=== PATIENT | female | born 1980 | race Caucasian/White ===

== ENCOUNTER → 2020-08-07 16:35 | Outpatient (CLI) | payer OTHER, SELFPAY ==
--- NOTE | ~2020-08-07 | XR_ITS ---
EXAMINATION: XR hand RT 2V EXAM DATE: 08/07/2020 17:10 INDICATION: Multiple joint pain. TECHNIQUE: Frontal and lateral projections of the right hand.. Correlation is made to contralateral hand same date. FINDINGS: Joint spaces are maintained. There are no bony erosions identified. There are no acute rig ht hand fractures or dislocations identified. There is no subcutaneous gas. The soft tissue is unre markable. There are no radiopaque foreign bodies. IMPRESSION: 1. Unremarkable XR hand RT 2V exam. Reviewed, dictated and finalized at location A.
--- NOTE | ~2020-08-07 | XR_ITS ---
EXAMINATION: XR foot RT 2V EXAM DATE: 08/07/2020 17:10 INDICATION: Multiple joint pain. TECHNIQUE: Frontal and lateral projections of the right foot. There is no prior study for compariso n. FINDINGS: The joint spaces are uniform. There are no bony erosions identified. There are no acute ri ght foot fractures or dislocations identified. There is no subcutaneous gas. The soft tissue is unr emarkable. There are no radiopaque foreign bodies. IMPRESSION: 1. Unremarkable XR foot RT 2V exam. Reviewed, dictated and finalized at location A.
--- NOTE | ~2020-08-07 | XR_ITS ---
EXAMINATION: XR foot LT 2V EXAM DATE: 08/07/2020 17:10 INDICATION: Multiple joint pain . TECHNIQUE: Frontal and lateral projections of the left foot. There is no prior study for comparison . FINDINGS: The joint spaces are uniform. There are no bony erosions identified. There are no acute l eft foot fractures or dislocations identified. There is no subcutaneous gas. The soft tissue is unr emarkable. There are no radiopaque foreign bodies. IMPRESSION: 1. Unremarkable XR foot LT 2V exam. Reviewed, dictated and finalized at location A.
--- NOTE | ~2020-08-07 | XR_ITS ---
EXAMINATION: XR hand LT 2V EXAM DATE: 08/07/2020 17:10 INDICATION: Multiple joint pain . TECHNIQUE: Frontal and lateral projections of the left hand. There is no prior study for comparison . FINDINGS: The joint spaces are uniform. There are no bony erosions identified. There are no acute fr actures or dislocations identified. There is no subcutaneous gas. The soft tissue is unremarkable. There are no radiopaque foreign bodies. IMPRESSION: 1. Unremarkable XR hand LT 2V exam. Reviewed, dictated and finalized at location A.
== END ==
PROVIDERS: Visit Provider Internal Medicine Rheumatology
DX: M25.50 Pain in unspecified joint (principal)
CPT/HCPCS: 73120; 73620

== ENCOUNTER → 2022-08-22 08:39 | Outpatient (CLI) | payer OTHER, SELFPAY ==
--- NOTE | ~2022-08-22 | MM_ITS ---
EXAMINATION: MM screening mary BI w dimas HISTORY: Screening mammogram TECHNIQUE: Craniocaudal and mediolateral oblique 3-D tomosynthesis images were obtained and synthetic 2-D images were generated. CAD analysis was submitted and interpreted. COMPARISON: No prior mammogram is available for comparison at this institution. BREAST PARENCHYMAL COMPOSITION:The breasts are heterogeneously dense, which may obscure small masses. FINDINGS: Possible area of distortion at the upper right breast on MLO view. No mass lesion or suspic ious calcification seen in either breast. No significant distortion seen in the left breast. IMPRESSION: Possible area of distortion in the upper right breast on MLO view. Spot compression and true lateral views, and possibly ultrasound, recommended for further evaluation. BI-RADS Category 0: Incomplete: Needs additional imaging evaluation. Reviewed, dictated and finalized at [facility]. IMPRESSION: Possible area of distortion in the upper right breast on MLO view. Spot compre ssion and true lateral views, and possibly ultrasound, recommended for further evaluation. BI-RADS Category 0: Incomplete: Needs additional imaging evaluation.
== END ==
PROVIDERS: PCP Nurse Practitioner; Visit Provider Nurse Practitioner
DX: Z12.31 Encounter for screening mammogram for malignant neoplasm of breast (principal); R92.8 Other abnormal and inconclusive findings on diagnostic imaging of breast
CPT/HCPCS: 77063; 77067

== ENCOUNTER → 2022-09-15 08:10 | Outpatient (CLI) | payer OTHER, SELFPAY ==
--- NOTE | ~2022-09-15 | MMUS_ITS ---
EXAMINATION: MM diagnostic mary RT w dimas, US breast RT complete HISTORY: Possible architectural distortion in upper right breast on screening MLO view of 08/22/2022 w as reported TECHNIQUE: Additional 3-D tomosynthesis images of the right breast were performed and synthetic 2-D i mages were generated. CAD analysis was submitted and interpreted. High resolution complete right johana st ultrasound examination including all 4 quadrants and subareolar area was performed. COMPARISON: 08/22/2022 bilateral screening mammogram FINDINGS: MAMMOGRAPHIC FINDINGS: No suspicious mass or architectural distortion is detected. No malignant calcification, skin thickeni ng or retraction. ULTRASOUND: No suspicious mass or shadowing, cyst or other sylvian sonographic abnormality is detected. IMPRESSION: 1. No mammographic or sonographic evidence of malignancy 2. Routine annual mammographic screening is recommended BI-RADS Category 1: Negative Reviewed, dictated and finalized at location A. IMPRESSION: 1. No mammographic or sonographic evidence of malignancy 2. Routine annual mammographic screening is recommended BI-RADS Category 1: Negative
== END ==
PROVIDERS: PCP Obstetrics & Gynecology Gynecology; Visit Provider Obstetrics & Gynecology Gynecology
DX: R92.8 Other abnormal and inconclusive findings on diagnostic imaging of breast (principal)
CPT/HCPCS: 76641; 77061; 77065; G0279

== ENCOUNTER 2023-12-17 12:02 | Outpatient (CLI) | payer OTHER, SELFPAY ==
--- NOTE | ~2023-12-17 | MM_ITS ---
EXAMINATION: MM screening mary BI w dimas HISTORY: Screening mammogram TECHNIQUE: Craniocaudal and mediolateral oblique 3-D tomosynthesis images were obtained and synthetic 2-D images were generated. CAD analysis was submitted and interpreted. COMPARISON: 08/22/2022 BREAST PARENCHYMAL COMPOSITION:Dense: The breasts are heterogeneously dense, which may obscure small masses. FINDINGS: No suspicious mass, calcification, or architectural distortion are identified in either shea ast to suggest malignancy. There has been no suspicious interval change. IMPRESSION: No mammographic evidence of malignancy. Recommend routine screening mammography in one year. BI-RADS Category 1: Negative Reviewed, dictated and finalized at location .
== END 2023-12-17 12:03 | disposition home or self-care (01) ==
LOC: MICIMG 12:03
PROVIDERS: PCP Nurse Practitioner Women's Health; Visit Provider Nurse Practitioner Women's Health
DX: Z12.31 Encounter for screening mammogram for malignant neoplasm of breast (principal)
CPT/HCPCS: 77063; 77067

== ENCOUNTER 2024-04-08 16:18 | Emergency (ER) | payer OTHER, SELFPAY ==
[2024-04-08 16:43] VITALS: BP 120/77; PULSE 66; RESP 16; TEMP 36.1; O2SAT 100
--- NOTE | 2024-04-08 19:06 | ED_ITS ---
HPI - Dental/Oral General Chief complaint: Dental/Oral Stated complaint: abcess tooth Time Seen by Provider: 04/08/24 19:06 Focused HPI: This is a 44 year old female that presents to the ER for dental abscess. Reports she is following with her dentist, getting it pulled on Wednesday. She had imaging that showed an abscess. She is currently on Augmentin, on day 2. Reports she has had some dizziness today, does report this has been an ongoing issue for her over the last year. Reports a headache. GENERAL: Well-appearing, well-nourished, and in no acute distress. HEAD: Normocephalic, atraumatic. CHEST: Clear to auscultation. ?No respiratory distress. HEART: Regular rate and rhythm.? NEURO: ?Alert and oriented x3. Patient screened in triage and initial orders placed.? ?Additional care and disposition to be based upon?diagnostic testing and treatment. History of Present Illness MD Complaint: tooth pain Location: Tooth # (2) Related Data Allergies Allergy/AdvReac Type Severity Reaction Status Date / Time No Known Allergies Allergy Unverified 11/23/15 19:25 Course Vital Signs Vital signs: Vital Signs Temperature 97.0 F L 04/08/24 16:43 Pulse Rate 66 04/08/24 16:43 Respiratory Rate 16 04/08/24 16:43 Blood Pressure 120/77 04/08/24 16:43 Pulse Oximetry 100 04/08/24 16:43 Oxygen Delivery Room Air 04/08/24 16:43 Temperature 98.3 F 04/08/24 21:53 Pulse Rate 58 L 04/08/24 21:53 Respiratory Rate 19 04/08/24 21:53 Blood Pressure 124/86 04/08/24 21:53 Pulse Oximetry 100 04/08/24 21:53 Oxygen Delivery Room Air 04/08/24 16:43 MDM - Dental/Oral MDM Narrative Medical decision making narrative: Patient left after medical screening exam and initial workup, and before any further evaluation or management Lab Data 04/08/24 21:44 04/08/24 21:44 Labs: Lab Results 04/08/24 Range/Units 21:44 WBC 7.1 (4.5-10.0) K/mm3 RBC 4.23 (4.2-5.4) M/mm3 Hgb 13.4 (12.0-15.0) g/dL Hct 39.9 (37.0-47.0) % MCV 94.3 (80-100) fl MCH 31.7 (26-34) pg MCHC 33.6 (32-36) g/dl RDW 12.0 (11.5-14.5) % Plt Count 274 (150-375) k/mm3 MPV 9.3 (7.4-10.4) fl Immature Gran % (Auto) 0.1 (0-0.5) % Neut % (Auto) 37.9 L (45.5-73.1) % Lymph % (Auto) 51.4 H (18.3-44.2) % O'Brien % (Auto) 7.3 (2.6-8.5) % Eos % (Auto) 3.0 (0-4.4) % Baso % (Auto) 0.3 (0.2-1.2) % Lymph # (Auto) 3.65 H (0.9-3.2) K/mm3 O'Brien # (Auto) 0.5 (0.1-0.6) K/mm3 Eos # (Auto) 0.2 (0-0.3) K/mm3 Baso # (Auto) 0.0 (0.0-0.1) K/mm3 Abs Immat Gran (auto) 0.01 (0.00-0.031) K/mm3 Absolute Neuts (auto) 2.7 (1.3-6.7) K/mm3 Absolute Nucleated RBC 0.000 (0.0-0.012) K/mm3 Nucleated RBC % 0.0 (0.0-0.2) % ESR 9 (0-20) mm/hr Sodium 139 (137-145) mmol/L Potassium 3.7 (3.4-5.0) mmol/L Chloride 102 (98-107) mmol/L Carbon Dioxide 32 H (22-30) mmol/L Anion Gap 5 (4-12) mmol/L BUN 9 (7-17) mg/dL Creatinine 0.66 L (0.7-1.0) mg/dL Estim Creat Clear Calc 89 ml/min Estimated GFR > 60 (59 - ) Glucose 94 (65-110) mg/dL Calcium 8.7 (8.4-10.2) mg/dL Total Bilirubin 0.3 (0.2-1.3) mg/dL AST 30 (14-36) U/L ALT 30 (6-35) U/L Alkaline Phosphatase 52 (38-126) U/L C-Reactive Protein < 0.5 (<1.0) mg/dL Total Protein 7.0 (6.3-8.2) g/dL Albumin 4.3 (3.5-5.1) g/dL Discharge Plan Discharge Clinical Impression: Toothache, Dizziness Patient Disposition: Elopement After Seen by Prov Condition: Guarded Prognosis Patient Language: Korean Follow-up/Referrals: Emerita,LEILANI Salguero [Primary Care Provider] - Stand Alone Forms: Work/School Release IP
--- NOTE | 2024-04-08 19:09 | ECG_ITS ---
Test Date: 2024-04-08 21:48:09 Measurements Intervals [place] Rate: 50 P: 78 AK: 147 QRS: 82 QRSD: 99 T: 68 QT: 402 QTc: 367 Interpretive Statements SINUS BRADYCARDIA OTHERWISE NORMAL ECG No previous ECG available for comparison Electronically Signed On 04-09-2024 08:28:42 PECAN SHELLER by Venancio Eddy M.D.
[2024-04-08 20:50] VITALS: BP 115/77; PULSE 63; RESP 18; O2SAT 99
[2024-04-08 21:48] LABS: Basophils Percent Auto 0.3 % (0.2-1.2); Eosinophils Absolute Auto 0.2 K/mm3 (0-0.3); Hematocrit 39.9 % (37.0-47.0); Hemoglobin 13.4 g/dL (12.0-15.0); Immature Granulocyte Absolute 0.01 K/mm3 (0.00-0.031); Immature Granulocyte Percent A 0.1 % (0-0.5); Lymphocytes Absolute Auto 3.65 K/mm3 (0.9-3.2); Lymphocytes Percent Auto 51.4 % (18.3-44.2); Mean Corpuscular HGB Conc 33.6 g/dl (32-36); Mean Corpuscular Hemoglobin 31.7 pg (26-34); Mean Corpuscular Volume 94.3 fl (80-100); Mean Platelet Volume 9.3 fl (7.4-10.4); Monocytes Absolute Auto 0.5 K/mm3 (0.1-0.6); Monocytes Percent Auto 7.3 % (2.6-8.5); Neutrophils Absolute Auto 2.7 K/mm3 (1.3-6.7); Neutrophils Percent Auto 37.9 % (45.5-73.1); Platelet Count Result 274 k/mm3 (150-375); Red Blood Count 4.23 M/mm3 (4.2-5.4); White Blood Count 7.1 K/mm3 (4.5-10.0)
[2024-04-08 21:53] VITALS: BP 124/86; PULSE 58; RESP 19; TEMP 36.8; O2SAT 100
[2024-04-08 22:15] LABS: Alanine Aminotransferase 30 U/L (6-35); Albumin Level 4.3 g/dL (3.5-5.1); Alkaline Phosphatase 52 U/L (38-126); Anion Gap 5 mmol/L (4-12); Aspartate Amino Transferase 30 U/L (14-36); Bilirubin,Total 0.3 mg/dL (0.2-1.3); Blood Urea Nitrogen 9 mg/dL (7-17); CRP < 0.5 mg/dL (<1.0); Calcium 8.7 mg/dL (8.4-10.2); Carbon Dioxide 32 mmol/L (22-30); Chloride 102 mmol/L (98-107); Estimated CRCL calculation 89 ml/min; Estimated Glomerular Filt Rate > 60; Glucose 94 mg/dL (65-110); Potassium 3.7 mmol/L (3.4-5.0); Sodium 139 mmol/L (137-145)
[2024-04-08 22:22] LABS: Erythrocyte Sedimentation Rate 9 mm/hr (0-20)
--- NOTE | 2024-04-09 00:52 | PC.NURSE ---
Patient called multiple times for room assignment, no answer and not seen in waiting room. Patient marked as eloped after seen by provider.
== END 2024-04-09 00:54 | disposition left against medical advice (07) ==
PROVIDERS: Emergency Provider Physician Assistant; PCP Nurse Practitioner Women's Health
DX: K08.89 Other specified disorders of teeth and supporting structures (principal); R42 Dizziness and giddiness
CPT/HCPCS: 36415; 80053; 85025; 85652; 86140; 93005; 99283